=== PATIENT | male | born 1965 | race Caucasian/White ===

== ENCOUNTER → 2018-01-08 15:01 | Outpatient (CLI) | payer BC, SELFPAY | PROVIDERS: PCP Family Medicine; Visit Provider Orthopaedic Surgery | DX: M25.512 Pain in left shoulder (principal) | CPT/HCPCS: 73221 ==

== ENCOUNTER → 2019-04-15 17:09 | Outpatient (CLI) | payer BC, SELFPAY ==
[2019-04-15 18:18] LABS: Basophils % 0.4 % (0.1-2.0); Eosinophils # 0.3 K/mm3 (0.0-0.4); Eosinophils % 2.9 % (0.1-12.0); Hematocrit 39.4 % (42.0-52.0); Hemoglobin 13.2 g/dL (14.1-18.0); Lymphocytes # 2.2 K/mm3 (0.7-4.5); Lymphocytes % 25.9 % (10-50); Mean Corpuscular HGB Conc 33.4 g/dL (31.8-35.4); Mean Corpuscular Hemoglobin 31.4 pg (27.0-31.2); Mean Corpuscular Volume 94.1 fl (80-94); Mean Platelet Volume 10.4 fl (7.4-10.4); Monocytes # 0.5 K/mm3 (0.1-1.0); Monocytes % 5.8 % (1.7-9.3); Neutrophils # 5.6 K/mm3 (1.8-7.8); Neutrophils % 64.9 % (37.0-80.0); Platelet Count 160 K/mm3 (142-424); Red Blood Count 4.19 M/mm3 (4.60-6.20); Red Cell Distribution Width 14.1 % (11.5-17.5); White Blood Count 8.6 K/mm3 (4.8-10.8)
[2019-04-15 20:01] LABS: Hemoglobin A1C 6.4 % (4.0-6.0)
[2019-04-15 20:27] LABS: Chloride 102 mmol/L (98-107); Sodium 137 mmol/L (136-145)
[2019-04-15 20:28] LABS: Potassium 4.5 mmoL/L (3.5-5.1)
[2019-04-15 20:30] LABS: Alanine Aminotransferase 147 U/L (12-78); Alkaline Phosphatase 114 U/L (38-126); Anion Gap 13.5 mEq/L (5-15); Aspartate Amino Transferase 83 U/L (17-59); Bilirubin,Total 0.4 mg/dl (0.2-1.3); Blood Urea Nitrogen 12 mg/dl (9-20); Carbon Dioxide 26 mmol/L (22.0-30.0); Cholesterol 189 mg/dl (140-200); Estimated Glomerular Filt Rate 118 ml/min (>60); GFR (African American) 143 ML/MIN (>60); Triglycerides 115 mg/dl (30-150); VLDL Cholesterol 23 mg/dL (0-40)
[2019-04-15 20:31] LABS: Albumin Level 4.1 g/dl (3.5-5.0); Albumin/Globulin Ratio 1.2 (1.1-1.8); Chol/HDL Ratio 4.1 (1-3.5); Globulin 3.3 g/dL (1.3-3.2); Glucose 116 mg/dl (74-100); HDL Cholesterol 46 mg/dl (40-60); Total Protein,Serum 7.4 g/dl (6.3-8.2)
[2019-04-15 20:42] LABS: Direct LDL Cholesterol 131.79 mg/dL (100-129)
[2019-04-15 20:48] LABS: T4 (Thyroxine) 11.3 ug/dl (5.53-11.0)
[2019-04-15 21:02] LABS: Thyroid Stimulating Hormone 3.47 uIU/mL (0.465-4.68)
[2019-04-17 10:16] LABS: Vitamin D 25 Hydroxy 9.6 ng/mL (30.0-100.0)
[2019-04-17 10:52] LABS: Creatinine, Urine 184.2 mg/dL (Not Estab.); Microalbumin, Urine 6.8 ug/mL (Not Estab.)
== END ==
PROVIDERS: Visit Provider Nurse Practitioner Family
DX: E11.9 Type 2 diabetes mellitus without complications (principal); I10 Essential (primary) hypertension; E55.9 Vitamin D deficiency, unspecified; Z79.84 Long term (current) use of oral hypoglycemic drugs
CPT/HCPCS: 80053; 80061; 82043; 82570; 82652; 83036; 84436; 84443; 85025